=== PATIENT | female | born 2000 | race Two or more races ===

== ENCOUNTER 2022-04-06 12:24 | Emergency (ER) | payer MEDICAID ==
[~2022-04-06] VITALS: Ht 175.3 cm; Wt 100.0 kg
[2022-04-06 12:27] VITALS: BP 156/80
== END 2022-04-06 13:17 | disposition home or self-care (01) ==
LOC: ER 12:24
DX: R06.02 Shortness of breath (principal); Z02.89 Encounter for other administrative examinations
CPT/HCPCS: 99283